=== PATIENT | male | born 1995 | race Caucasian/White ===

== ENCOUNTER → 2017-10-07 | Outpatient (CLI) | payer BC | END | disposition home or self-care (01) | LOC: LABWHC1 15:59 | PROVIDERS: ATTEND Otolaryngology | DX: J30.89 Other allergic rhinitis (principal) | CPT/HCPCS: 36415 ==

== ENCOUNTER → 2021-04-15 | Outpatient (CLI) | payer BC, OTHER | END | disposition home or self-care (01) | LOC: LABWHC1 11:37 | PROVIDERS: ATTEND Emergency Medicine | DX: Z20.822 Contact with and (suspected) exposure to COVID-19 (principal) | CPT/HCPCS: 87635 ==

== ENCOUNTER → 2021-04-16 | Outpatient (CLI) | payer BC, OTHER | END | disposition home or self-care (01) | LOC: LABWHC1 11:40 | PROVIDERS: ATTEND Emergency Medicine | DX: Z20.822 Contact with and (suspected) exposure to COVID-19 (principal) | CPT/HCPCS: 87635 ==

== ENCOUNTER → 2021-12-03 | Outpatient (CLI) | payer MEDICAID ==
--- NOTE | 2021-12-03 08:16 | US ---
EXAMINATION TYPE: US abdomen complete DATE OF EXAM: 12/03/2021 COMPARISON: NONE CLINICAL HISTORY: R10.11 RIGHT UPPER QUADRANT PAIN. RUQ pain x 3 weeks EXAM MEASUREMENTS: Liver Length: 13.4 cm Gallbladder Wall: 0.3 cm CBD: 0.3 cm Spleen: 11.6 cm Right Kidney: 12.3 x 5.3 x 4.1 cm Left Kidney: 13.2 x 4.5 x 5.6 cm Pancreas: wnl Liver: wnl Gallbladder: wnl Evidence for sonographic Black's sign: no CBD: wnl Spleen: wnl Right Kidney: wnl Left Kidney: wnl Upper IVC: wnl Abd Aorta: wnl IMPRESSION: No acute process.
== END | disposition home or self-care (01) ==
LOC: RADUSWWP 07:32
PROVIDERS: ATTEND Family Medicine
DX: R10.11 Right upper quadrant pain (principal)
CPT/HCPCS: 76700

== ENCOUNTER → 2021-12-10 | Outpatient (CLI) | payer MEDICAID ==
--- NOTE | 2021-12-10 08:50 | XR ---
EXAMINATION TYPE: XR thoracic spine complete DATE OF EXAM: 12/10/2021 COMPARISON: NONE HISTORY: Pain TECHNIQUE: 3 views submitted FINDINGS: Alignment is anatomic. There is no compression deformities. Vertebral body height and disc interspa arben are maintained. IMPRESSION: 1. No acute abnormality. If symptoms persist consider MRI.
--- NOTE | 2021-12-10 13:03 | CT ---
EXAMINATION TYPE: CT abdomen wo/w con DATE OF EXAM: 12/10/2021 COMPARISON: Ultrasound 12/03/2021 HISTORY: Epigastric pain CT DLP: 617.1 mGycm Automated exposure control for dose reduction was used. TECHNIQUE: Helical acquisition of images was performed from the lung bases through the top of iliac crest to include entire abdomen. CONTRAST: Performed without Oral Contrast and without and with IV Contrast, patient injected with 100 mL of Iso albert 300. FINDINGS: LUNG BASES: No significant abnormality is appreciated. LIVER/GB: No significant abnormality is appreciated. PANCREAS: No significant abnormality is seen. SPLEEN: No significant abnormality is seen. ADRENALS: No significant abnormality is seen. KIDNEYS: There is prominence of the renal pelvis bilaterally most likely in the basis of an extrarena l pelvis. Delayed imaging demonstrates the ureter distally to be of normal caliber. Therefore, extrar enal pelvis favored. Correlate with urinalysis if clinically warranted. BOWEL: The visualized bowel gas pattern is nonspecific with no obstruction. Appendix is normal as vi sualized mild thickening of the wall of the gastric antrum and proximal duodenum could be on the basi s of incomplete distention. There is a small hiatal hernia. The stomach is nondistended and therefore limited. LYMPH NODES: No significant abnormality is seen. OSSEOUS STRUCTURES: There is a congenital appearing endplate deformity of proximal level of T10 or T 9 with a small spur extending posteriorly. Tiny disc bulge suspected. Minimal disc bulging paracentri c left L4-L5. FREE AIR: No free air is visualized. OTHER: Aorta normal caliber. No free fluid. ' IMPRESSION: 1. There is a small hiatal hernia. There is mild thickening of the wall the gastric antrum which most likely is related to incomplete distention. If there are symptoms of peptic ulcer disease or gastrit is correlate with direct visualization. 2. Mild prominence of the renal pelvis bilaterally with no evidence of renal calcification. Delayed i maging was obtained through the ureters to appear to be of normal caliber distally. Therefore, extrar enal pelvis is the most likely etiology.
== END | disposition home or self-care (01) ==
LOC: RADXRMAIN 07:17
PROVIDERS: ATTEND Family Medicine
DX: K44.9 Diaphragmatic hernia without obstruction or gangrene (principal); K63.89 Other specified diseases of intestine; M54.6 Pain in thoracic spine
CPT/HCPCS: 72072; 74170; Q9967

== ENCOUNTER → 2022-01-06 | Outpatient (CLI) | payer MEDICAID ==
--- NOTE | 2022-01-06 10:48 | NM ---
EXAMINATION TYPE: NM hepatobiliary w EF DATE OF EXAM: 01/06/2022 COMPARISON: CT 12/02/2021, ultrasound abdomen 12/03/2021 HISTORY: Right upper quadrant pain TECHNIQUE: After the intravenous administration of 4.4 mCi Tc 99m Mebrofenin hepatobiliary scintigrap hy is performed. Immediate images post injection. FINDINGS: There is satisfactory initial accumulation of tracer by the liver. The gallbladder is visualized wit hin 4 minutes. The small bowel activity is noted within 30 minutes. At one hour 8 ounces of oral en sure plus is given to mimic CCK and gallbladder ejection fraction is calculated at 52 %, in the bhupendra l range. Therefore there is no scintigraphic evidence of cystic or common bile duct obstruction to s uggest acute cholecystitis or gallbladder dyskinesia. IMPRESSION: Exam is within normal limits.
== END | disposition home or self-care (01) ==
LOC: RADNMMAIN 06:51
PROVIDERS: ATTEND Family Medicine
DX: R10.13 Epigastric pain (principal)
CPT/HCPCS: 78226; A9537

== ENCOUNTER 2022-11-28 14:48 | Day surgery (SDC) | payer MEDICAID ==
[2022-11-26 10:24] VITALS: BMI 23.0
[~2022-11-28 14:48] MED LIST: LACTATED RINGERS 1,000 ML IV SCH; LIDOCAINE 2% INJ 20 MG/ML (2 ML VIAL) ONE; PROPOFOL 10 MG/ML 20 ML VIAL IV ONE
[2022-11-28 15:36] VITALS: TEMP 97.8
--- NOTE | 2022-11-28 17:01 | P.PCN ---
Date of Procedure: 11/28/22 Procedure(s) Performed: BRIEF HISTORY: Patient is a 27-year-old, pleasant, white male scheduled for an upper endoscopy as a part of evaluation of GERD the last several months duration... PROCEDURE PERFORMED: Esophagogastroduodenoscopy. PREOPERATIVE DIAGNOSIS: GERD. IV sedation per anesthesia. PROCEDURE: After informed consent was obtained, the patient was brought into the endoscopy unit. IV sedation was administered by Anesthesia under continuous monitoring. Initially the Olympus GIF-140 video endoscope was inserted into the mouth. Esophagus intubated without any difficulty. It was gradually advanced into the stomach and duodenum and carefully examined. The bulb and the second part of the duodenum appeared normal. The scope at this time was withdrawn to the stomach, adequately insufflated with air, and upon careful examination, mucosa of the antrum, body, cardia and the fundus appeared normal. The scope was then withdrawn into the esophagus. The GE junction was located at 39 cm from the incisors. Small sliding type hiatal hernia noted. The esophagus appeared normal. There were no erosions or ulcerations seen and the patient tolerated the procedure well. IMPRESSION: 1. Small hiatal hernia. 2. No evidence of esophagitis or Ho's esophagus. RECOMMENDATIONS: The findings of this examination were discussed with the patient as well as his family. He was advised to continue with omeprazole 20 mg daily and follow antireflux measures..
[2022-11-28 17:23] VITALS: BP 120/70; PULSE 80; RESP 16
== END 2022-11-28 17:34 | disposition home or self-care (01) ==
LOC: ORWHC2ENDO 14:48
PROVIDERS: ATTEND Internal Medicine Gastroenterology
DX: K21.9 Gastro-esophageal reflux disease without esophagitis (principal); K44.9 Diaphragmatic hernia without obstruction or gangrene; Z79.899 Other long term (current) drug therapy
CPT/HCPCS: 43235; J2704; J2001

== ENCOUNTER → 2022-12-25 | Outpatient (CLI) | payer MEDICAID ==
--- NOTE | 2022-12-25 11:12 | XR ---
EXAMINATION TYPE: XR knee complete RT DATE OF EXAM: 12/25/2022 COMPARISON: NONE HISTORY: Pain TECHNIQUE: Three views are submitted. FINDINGS: Joint spaces are preserved. Osseous structures are intact. No acute fracture seen. There is a smal l suprapatellar bursal fluid collection. IMPRESSION: 1. No acute fracture or dislocation. Small suprapatellar bursal fluid collection can sometimes be as sociated with internal derangement knee. Consider follow-up MRI as clinically warranted.
--- NOTE | 2022-12-26 09:52 | MR ---
EXAMINATION TYPE: MR thoracic spine wo con DATE OF EXAM: 12/25/2022 2:23 PM COMPARISON: NONE HISTORY: Mid back pain, bilateral rib pain, DDD Multiplanar MultiSpin echo imaging of the thoracic spine was performed. Disc spaces: Mild decreased signal and loss of height at the T7-T8 level with right paracentral disc protrusion. There is minimal effacement ventral thecal sac. No definite cord contact. Similar degener ative change in right paracentral small disc protrusion noted at T8-T9 mild distortion ventral thorac ic spinal cord without direct contact. Remaining levels are within normal limits. Spinal canal: No evidence for canal stenosis. No intrinsic or extrinsic lesion. Thoracic spinal cord: Thoracic spinal cord is of normal caliber and signal. Paraspinal soft tissues: No evidence for paraspinal mass. No destructive lesions seen. Vertebral segments: No evidence for fracture or bony lesion. IMPRESSION: 1. Degenerative disc disease at T7-T8 and T8-T9 with small right paracentral disc protrusions as disc ussed above.
== END | disposition home or self-care (01) ==
LOC: RADXRMAIN 10:28
PROVIDERS: ATTEND Family Medicine
DX: M51.34 Other intervertebral disc degeneration, thoracic region (principal); M51.24 Other intervertebral disc displacement, thoracic region; M47.814 Spondylosis without myelopathy or radiculopathy, thoracic region; M23.91 Unspecified internal derangement of right knee; M70.41 Prepatellar bursitis, right knee
CPT/HCPCS: 72146

== ENCOUNTER → 2022-12-31 | Outpatient (CLI) | payer MEDICAID | END | disposition home or self-care (01) | LOC: LABWHC1 08:36 | PROVIDERS: ATTEND Otolaryngology | DX: H93.19 Tinnitus, unspecified ear (principal); H81.4 Vertigo of central origin | CPT/HCPCS: 36415; 82306; 86038; 86618 ==

== ENCOUNTER → 2022-12-31 | Outpatient (CLI) | payer MEDICAID ==
--- NOTE | 2022-12-31 09:12 | MR ---
EXAMINATION TYPE: MR knee RT wo con DATE OF EXAM: 12/31/2022 COMPARISON: Radiographs 12/25/2022 HISTORY: 27-year-old male M25.561, Right knee pain, instability. Injury 2 years ago. TECHNIQUE: Multiplanar, multisequence imaging of the right knee is performed without IV contrast. FINDINGS: The ACL, PCL, MCL, and intact. There is small amount fluid tracking along the popliteus myotendinous junction. There is small appearance to the body of the medial meniscus that could be secondary to previous surg elly or chronic tear. Clinically correlate. Otherwise, no discrete tear is identified. Overall medial compartment articular cartilage volume is maintained. The lateral meniscus is intact and overall lateral compartment articular cartilage volume is maintain ed. There is unusual downward indentation of the mid weightbearing aspect of the lateral tibial plate au articular surface. Possibly on a congenital basis or could reflect a remote, now healed impaction fracture deformity. The overlying articular cartilage appears normal. Patellofemoral compartment articular cartilage volume is maintained. 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 Some focal edema within Hoffa's fat inferior and lateral to the patella, sagittal image 23. Extensor mechanism is intact. Small knee joint effusion likely physiologic. Small 1.1 x 0.8 cm ganglion cyst at the origin of the medial high gastrocnemius. Trace fluid insinuating between the tendon of the medial head gastrocnemius and semimembranosus measu ring 1.4 cm. No sizable Reyes's cyst at this time. Normal popliteal artery anatomy and muscle bulk. No suspicious bone marrow replacement. IMPRESSION: 1. Small appearance to the body of the medial meniscus could be secondary to previous surgery or social welfare research worker marlon tear. Clinically correlate. 2. Unusual slight downward indentation of the mid weightbearing aspect of the lateral tibial plateau articular surface, possibly on a congenital basis or could reflect a remote, now healed impaction def ormity. The overlying articular cartilage appears normal. 3. 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 4. Some focal edema within Hoffa's fat lateral and inferior to the patella may be seen with fat pad i mpingement syndrome. Correlate for any localizing symptoms.
== END | disposition home or self-care (01) ==
LOC: RADMRIMAIN 06:05
PROVIDERS: ATTEND Family Medicine
DX: M79.4 Hypertrophy of (infrapatellar) fat pad (principal); M22.2X1 Patellofemoral disorders, right knee

== ENCOUNTER → 2023-03-27 | Outpatient (CLI) | payer OTHER ==
--- NOTE | 2023-03-27 11:52 | XR ---
EXAMINATION TYPE: XR elbow complete RT DATE OF EXAM: 03/27/2023 COMPARISON: NONE HISTORY: Pain FINDINGS: Three views of the elbow demonstrate no pathologic joint effusion. The osseous structures are intact . There is no acute fracture or dislocation. IMPRESSION: 1. No acute fracture or dislocation. If symptoms persist follow-up study in 7 to 10 days could be ob tained.
== END | disposition home or self-care (01) ==
LOC: RADXRMAIN 11:27
PROVIDERS: ATTEND Emergency Medicine
DX: S53.401A Unspecified sprain of right elbow, initial encounter (principal); R20.9 Unspecified disturbances of skin sensation; X58.XXXA Exposure to other specified factors, initial encounter

== ENCOUNTER → 2023-04-08 | Outpatient (CLI) | payer MEDICAID ==
--- NOTE | 2023-04-08 14:20 | CT ---
EXAMINATION TYPE: CT brain wo/w con DATE OF EXAM: 04/08/2023 COMPARISON: None HISTORY: left petrous apex fluid, headaches and off balance issues. CT DLP: 2362.40 combinedmGycm CONTRAST: CT scan of the head is performed without and with IV Contrast, patient injected with mL of Isovue 300 . Unenhanced followed by contrast enhanced CT of the brain is submitted for evaluation. The ventricles are midline. There is no evidence for intracranial hemorrhage or extra-axial collection. No mass e ffects are identified. Visualized bony calvarium is intact. Contrast is administered and no enhanci ng lesions are detected. No pathologic enhancement is identified. If symptoms persist consider MRI. IMPRESSION: Normal CT brain.
--- NOTE | 2023-04-08 14:23 | CT ---
EXAMINATION TYPE: CT iac wo/w con DATE OF EXAM: 04/08/2023 COMPARISON: None HISTORY: left petrous apex fluid, headaches and off balance issues. CT DLP: 2362.40 combined mGycm Automated exposure control for dose reduction was used. CONTRAST: CT scan of the IACs is performed without and with IV Contrast, patient injected with 100 mL of Isovue 300. FINDINGS: The external auditory canals are patent bilaterally. Mastoid air cells show no evidence of abnormal opacification bilaterally. The middle ear ossicles are symmetric and unremarkable. There is no evidence of suspicious surrounding soft tissue density to suggest cholesteatoma. The scutum is preserved bilaterally. The cochlea and the semicircular canals are symmetric and unremarkable. Ves tibular aqueduct and internal carotid canal appear unremarkable. Temporomandibular joints are mainta ined bilaterally. There is fluid seen within the left-sided petrous apex. IMPRESSION: Correlate for left-sided petrous apicitis.
== END | disposition home or self-care (01) ==
LOC: RADCTMAIN 13:23
PROVIDERS: ATTEND Otolaryngology
DX: R22.0 Localized swelling, mass and lump, head (principal); R51.9 Headache, unspecified; R26.89 Other abnormalities of gait and mobility
CPT/HCPCS: 70482; 70470; Q9967

== ENCOUNTER → 2023-04-20 | Outpatient (CLI) | payer MEDICAID ==
[2023-04-20 21:41] LABS: Basophils # (A) 0.07 X 10*3/uL (0.00-0.10); Basophils % (A) 1.1 %; Eosinophils # (A) 0.12 X 10*3/uL (0.04-0.35); Eosinophils % (A) 1.9 %; HCT 48.2 % (39.6-50.0); HGB 16.3 d/dL (13.0-17.0); Lymphocytes # (A) 1.59 X 10*3/uL (0.90-5.00); MCH 31.2 pg (27.0-32.0); MCHC 33.8 d/dL (32.0-37.0); MCV 92.2 FL (80.0-97.0); Mean Platelet Volume 10.5 FL (9.5-12.2); Monocytes # (A) 0.63 X 10*3/uL (0.20-1.00); Monocytes % (A) 9.9 %; NRBC Per 100 WBC 0 X 10*3/uL (0.00-0.01); Neutrophils # (A) 3.93 X 10*3/uL (1.80-7.70); Neutrophils % (A) 61.8 %; Platelet Count 275 X 10*3/uL (140-440); RBC 5.23 X 10*6/uL (4.40-5.60); RDW 11.9 % (11.5-14.5); WBC 6.36 X 10*3/uL (4.50-10.00)
== END | disposition home or self-care (01) ==
LOC: LABWHC1 13:18
PROVIDERS: ATTEND Family Medicine
DX: R59.9 Enlarged lymph nodes, unspecified (principal)
CPT/HCPCS: 36415; 85025

== ENCOUNTER → 2024-03-24 | Outpatient (CLI) | payer MEDICAID ==
--- NOTE | 2024-03-24 12:46 | CT ---
EXAMINATION TYPE: CT iac wo con CT DLP: 142.70 mGycm, Automated exposure control for dose reduction was used. DATE OF EXAM: 03/24/2024 9:43 AM INDICATION: Patient age:Male; 28 years old; Reason for study: H83.8X2 SPECIFIED DISEASES OF LEFT INNER EAR; [facility]. COMPARISON: CT brain 04/08/2023, CT IAC 04/08/2023, MR brain and IAC's 01/06/2023. TECHNIQUE: Multiple thin axial images were obtained through the temporal bones and internal auditory canals. Additional coronal reformatted images were obtained. No IV contrast was utilized. FINDINGS: Right Temporal Bone: External Ear: The external auditory canal is unremarkable, The tympanic membrane is present and unrem arkable. Middle Ear: The ossicles demonstrate a normal appearance. Prussak's space is clear and the scutum i s intact. The tegmen tympani is intact. There is thinning and possible dehiscence of the roof of the superior semicircular canal. Inner Ear: Cochlea and vestibule are unremarkable. No evidence of carotid canal dehiscence. Two and a half turns of the cochlea are identified. The vestibular aqueduct is not enlarged. Mastoid Air Cells: The mastoid air cells are clear. The tegmen mastoideum is intact. The aditus ad an trum is clear. Internal Auditory Canal: The internal auditory canal is unremarkable. Left Temporal Bone: External Ear: The external auditory canal is unremarkable, The tympanic membrane is present and unrem arkable. Middle Ear: The ossicles demonstrate a normal appearance. Prussak's space is clear and the scutum i s intact. The tegmen tympani is intact. There is thinning and possible dehiscence of the roof of the superior semicircular canal. Inner Ear: Cochlea and vestibule are unremarkable. No evidence of carotid canal dehiscence. Two and a half turns of the cochlea are identified. The vestibular aqueduct is not enlarged. Mastoid Air Cells: The mastoid air cells are clear. There is again fluid identified within the left p etrous apex. The tegmen mastoideum is intact. The aditus ad antrum is clear. Internal Auditory Canal: The internal auditory canal is unremarkable. IMPRESSION: 1. Thinning with possible dehiscence of the roof of the bilateral superior semicircular canals. Diff icult to exclude secondary to CT slice thickness. 2. Left petrous apex fluid redemonstrated. Correlate for left-sided petrous apicitis. [facility], , 03/24/2024 12:44 PM
== END | disposition home or self-care (01) ==
LOC: RADCTMAIN 09:09
PROVIDERS: ATTEND Otolaryngology
DX: H83.8X2 Other specified diseases of left inner ear (principal)
CPT/HCPCS: 70480

== ENCOUNTER → 2024-09-06 | Outpatient (CLI) | payer MEDICAID ==
--- NOTE | 2024-09-06 12:20 | CT ---
EXAMINATION TYPE: CT soft tissue neck w con DATE OF EXAM: 09/06/2024 COMPARISON: NONE CLINICAL INDICATION: Male, 28 years old with history of R22.1 LOCALIZED SWELLING, MASS AND LUMP, NECK , left side lump mass x few years. TECHNIQUE: CT scan of the neck is performed with IV Contrast, patient injected with 100 ml mL of Iso albert 300, axial images are obtained, coronal and sagittal reformatted images are reviewed. CT DLP: 420.50 mGycm. Automated Exposure Control for Dose Reduction was Utilized. FINDINGS: Airway: At the floor of mouth on the left aspect there is loculated low dense lesion measuring 5.1 cm AP diameter by 4.5 cm transversely by 3.5 cm craniocaudal dimension axial image 53 and sagittal imag e 48. This fluid collection or more likely thin-walled cyst as local mass effect. This effaces the me dial aspect of the left submandibular gland and extends superiorly. Remainder of the airway is patent . Parotid/submandibular glands: Parotid glands symmetric and unremarkable.. Carotid/Vascular Structures: No suspicious abnormality. Osseous Structures: Slight levoconvex scoliotic curvature. Other: No suspicious adenopathy. IMPRESSION: There is 5.1 cm thin-walled cyst or cystic lesion at the left floor of mouth. Consider ra nula among the differential. Differential also includes epidermoid cyst and lymphangioma and Second b rachial cleft cyst. Advise ENT surgical scrub technologist to further evaluate. [facility], , 09/06/2024 12:17 PM
== END | disposition home or self-care (01) ==
LOC: RADCTMAIN 10:17
PROVIDERS: ATTEND Otolaryngology
DX: L72.0 Epidermal cyst (principal); R22.1 Localized swelling, mass and lump, neck
CPT/HCPCS: 70491; Q9967

== ENCOUNTER → 2024-12-08 | Outpatient (CLI) | payer MEDICAID ==
--- NOTE | 2024-12-08 14:39 | CT ---
EXAMINATION TYPE: CT soft tissue neck w con CT DLP: 441 mGycm, Automated exposure control for dose reduction was used. DATE OF EXAM: 12/08/2024 2:29 PM COMPARISON: CT soft tissue neck 09/06/2024. 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 Axial sections with coronal and sagittal reformats were obtained. FINDINGS: Brain: Visualized portions are grossly unremarkable. Orbits: Unremarkable Sinuses: Grossly unremarkable. Suprahyoid Neck: The oropharynx, oral cavity, and retropharyngeal spaces are clear and symmetric. The increased size of thin wall cystic lesion at the left lower of the mouth measuring grossly 5.6 x 5.2 x 4.2 cm (series 3, image 37 and series 5, image 73). Demonstrates a lobulated appearance with some possible thin septations. This causes localized surrounding mass effect with some effacement of the m edial aspect of the left submandibular gland extends superiorly again. The nasopharynx is unremarkabl e. Infrahyoid Neck: The larynx, hypopharynx, and supraglottic area are clear and symmetric. Parotid Glands: Unremarkable. Submandibular Glands: Unremarkable. Musculoskeletal: No acute osseous pathology. No aggressive osseous lesion. Lymph nodes: No pathologically enlarged lymph nodes identified. Vascular structures: Visualized major arteries are patent without evidence of aneurysm. Thoracic Inlet/airway: Airway is patent. The lung apices are clear. Soft tissues/Thyroid: Thyroid and remainder of the soft tissues are unremarkable. Other: none. IMPRESSION: Increased size of thin-walled cystic lesion at the left floor of the mouth with some possible thin se ptations. This is again favored represent a ranula versus other etiologies such as epidermoid cyst, l ymphangioma or second brachial cleft cyst. [facility], , 12/08/2024 2:37 PM
== END | disposition home or self-care (01) ==
LOC: RADCTMAIN 13:58
PROVIDERS: ATTEND Student in an Organized Health Care Education/Training Program
DX: Z01.818 Encounter for other preprocedural examination (principal); K11.6 Mucocele of salivary gland
CPT/HCPCS: 70491; Q9967